=== PATIENT | female | born 1960 | race Caucasian/White ===

== ENCOUNTER → 2020-12-06 11:26 | Outpatient (CLI) | payer MEDICARE, SELFPAY ==
--- NOTE | ~2020-12-06 | MM_ITS ---
EXAMINATION: MM screening [facility] BI w yana HISTORY: Screening mammogram TECHNIQUE: Craniocaudal and mediolateral oblique 3-D tomosynthesis images were obtained and synthetic 2-D images were generated. CAD analysis was submitted and interpreted. COMPARISON: 04/16/2017 BREAST PARENCHYMAL COMPOSITION: The breasts are almost entirely fatty. FINDINGS: Scattered benign-appearing calcifications are present. There is no evidence of suspicious m ass, calcification, or architectural distortion to suggest malignancy in either breast. There has bee n no suspicious interval change. IMPRESSION: 1. No mammographic evidence of malignancy. 2. Recommend routine screening mammography in one year. BI-RADS Category 2: Benign finding(s). Reviewed, dictated and finalized at location A. NING SUPERVISOR
== END ==
PROVIDERS: PCP Family Medicine; Visit Provider Family Medicine
DX: Z12.31 Encounter for screening mammogram for malignant neoplasm of breast (principal)
CPT/HCPCS: 77063; 77067

== ENCOUNTER 2021-11-09 00:26 | Day surgery (SDC) | payer MEDICARE, SELFPAY ==
[2021-10-24 14:55] VITALS: BMI 35.0
[2021-11-09 08:30] VITALS: BP 148/88; PULSE 90; RESP 20; TEMP 36.6; O2SAT 97; BMI 35.2
--- NOTE | 2021-11-09 08:31 | WPDANESEPPF ---
Anes - Initial Pre Proc Eval Procedure: Operation Date: 11/09/21 09:30 Proposed Procedures p Screening Colonoscopy - Zaid Landa MD Date/Time: 11/09/21 08:31 Surgeon: Zaid Landa MD Pre Op Diagnosis: neoplasm screening Patient Data Age: 61 Gender: F Height: 1.63 m Weight: 92.7 kg Allergies Allergy/AdvReac Type Severity Reaction Status Date / Time bee venom protein (honey bee) Allergy Unknown Unknown Verified 11/09/21 08:28 [bees] latex Allergy Unknown CONTACT- Verified 11/09/21 08:28 REDNESS, BURNING SKIN Home Medications Medication Instructions Recorded Confirmed Type blood sugar diagnostic #10 each 10/26/19 10/24/21 History interferon beta-1a 30 mcg/0.5 mL 30 mcg IM WEEKLY 10/26/19 10/24/21 History intramuscular pen kit lancets 33 gauge #100 each 10/26/19 10/24/21 History prednisone 5 mg tablet 5 mg PO DAILY #90 tablet 06/23/20 10/24/21 Rx atorvastatin 20 mg tablet 20 mg PO DAILY 09/20/20 10/24/21 History desmopressin 0.1 mg tablet 0.1 mg PO TID tablet 09/20/20 10/24/21 History glimepiride 4 mg tablet 4 mg PO QAM 09/20/20 10/24/21 History insulin degludec 100 unit/mL (3 20 unit SUBCUT HS 09/20/20 10/24/21 History mL) subcutaneous pen levothyroxine 75 mcg tablet 75 mcg PO DAILY tablet 09/20/20 10/24/21 History semaglutide 7 mg tablet 7 mg PO DAILY 09/20/20 10/24/21 History pen needle, diabetic 31 gauge x See Rx Instructions .ROUTE 01/09/21 10/24/21 Rx 5/16 .COMPLEX #100 ea oxybutynin chloride 5 mg 5 mg PO DAILY #90 tablet 07/06/21 10/24/21 Rx tablet,extended release 24 hr pramipexole 0.25 mg tablet 0.25 mg PO TID PRN #270 tablet 09/20/21 10/24/21 Rx lorazepam 1 mg tablet 1 mg PO BID PRN #60 tablet 10/18/21 10/24/21 Rx amlodipine 5 mg tablet 5 mg PO DAILY #90 tablet 10/30/21 11/07/21 Rx omeprazole 40 mg capsule,delayed 40 mg PO DAILY #30 cap 11/08/21 Rx release Patient hx anesthesia problems: none Family hx anesthesia problems: none Results Review: All pre-operative results and documents have been reviewed as part of the pre-operative evaluation. [facility] Past Medical History Medical History Anxiety Dyslipidemia Environmental allergies Essential (primary) hypertension Hypothyroidism IDDM (insulin dependent diabetes mellitus) Multiple sclerosis OAB (overactive bladder) Panhypopituitarism Pituitary adenoma Restless legs Surgical History Surgical History History of hysterectomy History of laparotomy for endometriosis - History of mandibular surgery - for over bite Status post transsphenoidal pituitary resection 2005 Family History Family History Father Hypertension Other Carcinoma of colon Cerebrovascular accident Family history of Alzheimer's disease Family history of cardiovascular disease Family history of hearing loss Social History Social History Smoking status: Never smoker Second hand tobacco smoke exposure: No Alcohol intake: current Alcohol use details: occasionally Substance use: never Substance use type: does not use Living arrangements: alone Spiritual care concerns: No Anes - Eval Final PreProcedure Day of Procedure 11/09/21 08:31 Patient weight: obese Heart: regular rate and rhythm Lungs: clear to auscultation Airway: Mallampati scale class III Neurological: alert and oriented Last oral intake: >/= 8 hours ASA classification: III Emergent: no Anesthetic plan: proceed Anesthesia type and monitoring: general GIVS and standard monitoring Results Review: All pre-operative results and documents have been reviewed as part of the pre-operative evaluation. Informed Consent: The patient's anesthetic plan and its attendant risks and benefits were dis
[2021-11-09] MEDS: LACTATED RINGERS 1,000 ML 150 ML IV CONT (08:44)
[2021-11-09 08:45] LABS: Glucose Point of Care 100 mg/dl (65-105)
--- NOTE | 2021-11-09 09:06 | WPDGICN ---
Assessment and Plan Assessment and plan (1) History of colon polyps: Code(s): Z86.010 - Personal history of colonic polyps Status: Acute Assessment and Plan: Patient has a history of colon polyps. Most recently 2016. Plan is for surveillance colonoscopy at least every 5 year intervals. (2) Family history of colon cancer in mother: Code(s): Z80.0 - Family history of malignant neoplasm of digestive organs Status: Acute Assessment and Plan: Patient's mother and also maternal aunt had colon cancer. His surveillance is advised for this patient and her siblings. This should be performed at least 5 year intervals. (3) GERD (gastroesophageal reflux disease): Qualifiers: Esophagitis presence: esophagitis presence not specified Qualified Code(s): K21.9 - Gastro-esophageal reflux disease without esophagitis Code(s): K21.9 - Gastro-esophageal reflux disease without esophagitis Status: Acute Assessment and Plan: Patient with heartburn currently controlled with acid suppression therapy. (4) Multiple sclerosis: Code(s): G35 - Multiple sclerosis Status: Acute (5) Abdominal pain: Code(s): R10.9 - Unspecified abdominal pain Status: Acute Assessment and Plan: Patient reports lower abdominal pain irregular stools. Most likely irritable bowel syndrome. Fiber supplement such as Metamucil is advised. This will be evaluated more thoroughly at the time colonoscopy. GI Consult Note Consult date/time: 11/09/21 09:06 HPI: Vanesa Lopez is a 61 year old female Presents for screening colonoscopy. Patient has a family history of colon cancer in her mother as well as her maternal aunt. Patient herself has had colon polyps in 2016. She presents today for follow-up colonoscopy. Patient additionally notices several months history of irregular bowel movements on low suprapubic abdominal discomfort. She has not tried any specific therapy to do maneuvers to help with this. She denies any blood in her stools. She presents today for screening colonoscopy. Review of Systems Review of Systems: All systems reviewed & are unremarkable except as noted in HPI and below PMFSH Past Medical History Medical History Anxiety Dyslipidemia Environmental allergies Essential (primary) hypertension Hypothyroidism IDDM (insulin dependent diabetes mellitus) Multiple sclerosis OAB (overactive bladder) Panhypopituitarism Pituitary adenoma Restless legs Surgical History Surgical History History of hysterectomy History of laparotomy for endometriosis - History of mandibular surgery - for over bite Status post transsphenoidal pituitary resection 2005 Family History Family History Father Hypertension Other Carcinoma of colon Cerebrovascular accident Family history of Alzheimer's disease Family history of cardiovascular disease Family history of hearing loss Social History Social History Smoking status: Never smoker Second hand tobacco smoke exposure: No Alcohol intake: current Alcohol use details: occasionally Substance use: never Substance use type: does not use Living arrangements: alone Spiritual care concerns: No Meds Home Medications and Allergies Home Medications Medication Instructions Recorded Confirmed Type blood sugar diagnostic #10 each 10/26/19 10/24/21 History interferon beta-1a 30 mcg/0.5 mL 30 mcg IM WEEKLY 10/26/19 10/24/21 History intramuscular pen kit lancets 33 gauge #100 each 10/26/19 10/24/21 History prednisone 5 mg tablet 5 mg PO DAILY #90 tablet 06/23/20 10/24/21 Rx atorvastatin 20 mg tablet 20 mg PO DAILY 09/20/20 10/24/21 History de
[2021-11-09 10:04] VITALS: BP 124/78; PULSE 75; RESP 21; O2SAT 98
[2021-11-09 10:14] VITALS: BP 123/77; PULSE 74; RESP 23; O2SAT 100
[2021-11-09 10:14] LABS: Glucose Point of Care 88 mg/dl (65-105)
[2021-11-09 10:24] VITALS: BP 154/89; PULSE 64; RESP 18; O2SAT 100
== END 2021-11-09 10:32 | disposition home or self-care (01) ==
PROVIDERS: PCP Family Medicine; Visit Provider Internal Medicine Gastroenterology
PROC: 0DJD8ZZ Inspection of Lower Intestinal Tract, Via Natural or Artificial Opening Endoscopic (ICD-10-PCS; CPT 45378; principal; 2021-11-09 09:30)
DX: Z12.11 Encounter for screening for malignant neoplasm of colon (principal); D12.4 Benign neoplasm of descending colon; D12.5 Benign neoplasm of sigmoid colon; K21.9 Gastro-esophageal reflux disease without esophagitis; R10.9 Unspecified abdominal pain; I10 Essential (primary) hypertension; D35.2 Benign neoplasm of pituitary gland; E03.9 Hypothyroidism, unspecified; E78.5 Hyperlipidemia, unspecified; E11.9 Type 2 diabetes mellitus without complications; G35 Multiple sclerosis; G25.81 Restless legs syndrome; F41.9 Anxiety disorder, unspecified; Z90.710 Acquired absence of both cervix and uterus; Z80.0 Family history of malignant neoplasm of digestive organs
CPT/HCPCS: 45385; 82948; 88305; J2001; J2704; J7120

== ENCOUNTER → 2021-12-19 11:18 | Outpatient (CLI) | payer MEDICARE, SELFPAY ==
--- NOTE | ~2021-12-19 | XR_ITS ---
EXAMINATION: XR hand RT min 3V, XR wrist RT min 3V DATE: 12/19/2021 12:04 INDICATION: Unspecified right hand and wrist pain TECHNIQUE: 1. Posteroanterior, ulnar deviation, oblique, and lateral views of the right wrist were obtained. 2. Dorsal palmar, oblique and lateral views of the right hand were obtained. COMPARISON: None. FINDINGS: Alignment of the right hand and wrist are normal. No fracture identified. Polyarticular osteoarthrit is, moderate severity at the first carpometacarpal and interphalangeal joints. Mild osteoarthritis at the distal radioulnar, wrist midcarpal, triscaphe and remaining at the metacarpophalangeal joints. S oft tissues are unremarkable. IMPRESSION: 1. 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 Reviewed, dictated and finalized at location A. T MANAGEMENT CONSULTANT IMPRESSION: 1. 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
== END ==
PROVIDERS: PCP Family Medicine; Visit Provider Nurse Practitioner
DX: M19.031 Primary osteoarthritis, right wrist (principal); M19.041 Primary osteoarthritis, right hand
CPT/HCPCS: 73110; 73130

== ENCOUNTER 2022-01-26 11:40 | Emergency (ER) | payer MEDICARE, SELFPAY ==
--- NOTE | ~2022-01-26 | CT_ITS ---
EXAMINATION: CT abdomen pelvis w con DATE: 01/26/2022 13:16 INDICATION: Low abdominal pain. TECHNIQUE: Computed tomography (CT) of the abdomen and pelvis was performed with 100 mL Omnipaque 350 intravenous contrast. Automated exposure control and iterative reconstruction technique were employe d. The dose-length product was 1008.26 mGy-cm. COMPARISON: None. FINDINGS: The visualized portions of the lung bases demonstrate mild atelectasis. Calcified right juan j g nodules and calcified right hilar lymph nodes are consistent with old granulomatous disease. No ple ural effusion. The heart size is normal. There are coronary artery calcifications. No pericardial eff usion. There is a small sliding hiatal hernia. The liver and spleen are normal. The gallbladder is di stended. The pancreas, adrenal glands, and kidneys are normal. There are no dilated loops of bowel. T here is mild periportal lymphadenopathy. There is no free intraperitoneal fluid. There is mild thorac olumbar spondylosis. IMPRESSION: 1. Gallbladder distention, which may be secondary to fasting. Correlate with physical exam for eviden ce of acute cholecystitis. 2. Small sliding hiatal hernia. 3. Mild periportal lymphadenopathy, likely reactive. Reviewed, dictated and finalized at location A. ING CONSULTANT IMPRESSION: 1. Gallbladder distention, which may be secondary to fasting. Correlate with ph ysical exam for evidence of acute cholecystitis. 2. Small sliding hiatal hernia. 3. Mild periportal lymphadenopathy, likely reactive.
[2022-01-26 11:51] VITALS: BP 146/88; PULSE 96; RESP 18; TEMP 36.5; O2SAT 100
--- NOTE | 2022-01-26 12:21 | PC.NURSE ---
Per lab patient will need to provide another urine specimen.
[2022-01-26 12:22] LABS: Basophils Percent Auto 0.5 % (0.2-1.2); Eosinophils Absolute Auto 0.2 K/mm3 (0-0.3); Eosinophils Percent Auto 3.4 % (0-4.4); Hematocrit 39.1 % (37.0-47.0); Hemoglobin 13.7 g/dL (12.0-15.0); Immature Granulocyte Absolute 0.02 K/mm3 (0.00-0.031); Immature Granulocyte Percent A 0.5 % (0-0.5); Lymphocytes Percent Auto 22.5 % (18.3-44.2); Mean Corpuscular Hemoglobin 30.7 pg (26-34); Mean Corpuscular Volume 87.7 fl (80-100); Mean Platelet Volume 10.7 fl (7.4-10.4); Monocytes Absolute Auto 0.6 K/mm3 (0.1-0.6); Monocytes Percent Auto 13.1 % (2.6-8.5); Neutrophils Absolute Auto 2.7 K/mm3 (1.3-6.7); Platelet Count Result 165 k/mm3 (150-375); Red Blood Count 4.46 M/mm3 (4.2-5.4); Red Cell Distribution Width 12.1 % (11.5-14.5); White Blood Count 4.4 K/mm3 (4.5-10.0)
--- NOTE | 2022-01-26 12:33 | PC.NURSE ---
Sample Book Maker reinfornced patient awareness of the need for a urine sample. Patient reports it was her second attempt at providing a urine sample but was unable to provide a sample at this time.
--- NOTE | 2022-01-26 12:34 | ED.FEMALEGU ---
HPI - Female Genitourinary General Chief complaint: Urogenital-Female Stated complaint: unable to urinate Time Seen by Provider: 01/26/22 12:10 History of Present Illness HPI Narrative: 61-year-old female presents to the emergency room with 3 days of urinary retention. States she was seen in her primary care's office today for initial evaluation, PCP stated that she did not have a urinary tract infection. Was encouraged to come to the emergency room for further evaluation. Patient has a history of hysterectomy due to endometriosis. Denies back pain, denies fever. Denies constipation, denies diarrhea. Reports suprapubic fullness. Denies vaginal bleeding. And hematuria Related Data Home Medications Medication Instructions Recorded Confirmed blood sugar diagnostic #10 each 10/26/19 01/26/22 interferon beta-1a 30 mcg/0.5 mL 30 mcg IM WEEKLY 10/26/19 01/26/22 intramuscular pen kit lancets 33 gauge #100 each 10/26/19 01/26/22 atorvastatin 20 mg tablet 20 mg PO DAILY 09/20/20 01/26/22 desmopressin 0.1 mg tablet 0.1 mg PO TID tablet 09/20/20 01/26/22 glimepiride 4 mg tablet 4 mg PO QAM 09/20/20 01/26/22 insulin degludec 100 unit/mL (3 20 unit SUBCUT HS 09/20/20 01/26/22 mL) subcutaneous pen levothyroxine 75 mcg tablet 75 mcg PO DAILY tablet 09/20/20 01/26/22 semaglutide 7 mg tablet 7 mg PO DAILY 09/20/20 01/26/22 Allergies Allergy/AdvReac Type Severity Reaction Status Date / Time bee venom protein (honey bee) Allergy Unknown Unknown Verified 01/26/22 10:54 [bees] latex Allergy Unknown CONTACT- Verified 01/26/22 10:54 REDNESS, BURNING SKIN Review of Systems Review of Systems: CONSTITUTIONAL: Denies fever, chills, or sweats. EYES: Denies visual changes, redness, or discharge. ENT: Denies rhinorrhea, congestion, sore throat, or otalgia. CARDIOVASCULAR: Denies chest pain, palpitations, or edema. RESPIRATORY: Denies cough or dyspnea. GASTROINTESTINAL: Reports suprapubic fullness, nausea. Denies diarrhea, constipation, vomiting GENITOURINARY: Denies dysuria or hematuria. SKIN: Denies rash or itching. MUSCULOSKELETAL: Denies back pain, joint pain, or myalgia. NEUROLOGIC: Denies headache, numbness, dizziness, or weakness. PSYCHIATRIC: Denies anxiety or depression. [facility] Past Medical History Medical History Anxiety Dyslipidemia Environmental allergies Essential (primary) hypertension History of colon polyps Hypothyroidism IDDM (insulin dependent diabetes mellitus) Multiple sclerosis OAB (overactive bladder) Panhypopituitarism Pituitary adenoma Restless legs Surgical History Surgical History History of hysterectomy History of laparotomy for endometriosis - History of mandibular surgery - for over bite Status post transsphenoidal pituitary resection 2005 Family History Family History Father Hypertension Other Carcinoma of colon Cerebrovascular accident Family history of Alzheimer's disease Family history of cardiovascular disease Family history of hearing loss Social History Social History Smoking status: Never smoker Second hand tobacco smoke exposure: No Alcohol intake: current Alcohol use details: occasionally Substance use: never Substance use type: does not use Spiritual care concerns: No Exam Narrative: GENERAL: Well-appearing, well-nourished, and in no acute distress. HEAD: Normocephalic, atraumatic. EYES: PERRLA and EOMI. ENT: Nares clear, no rhinorrhea or epistaxis. Mucous membranes moist. NECK: Supple. No adenopathy or masses. No carotid bruits or JVD CHEST: Clear to auscultation. No respiratory distress. No wheezes rales or rhonchi HEART: Regular rate and rhythm. No murmur heard. Normal periphera
[2022-01-26 12:36] LABS: Alanine Aminotransferase 32 U/L (4-35); Albumin Level 3.9 g/dL (3.5-5.1); Alkaline Phosphatase 67 U/L (38-126); Anion Gap 7 mmol/L (8-16); Aspartate Amino Transferase 36 U/L (14-36); Bilirubin,Total 0.8 mg/dL (0.2-1.3); Blood Urea Nitrogen 6 mg/dL (7-17); Calcium 8.7 mg/dL (8.4-10.2); Carbon Dioxide 27 mmol/L (22-30); Chloride 98 mmol/L (98-107); Estimated Glomerular Filt Rate > 60; Glucose 137 mg/dL (65-110); Lipase 102 U/L (23-300); Potassium 3.3 mmol/L (3.4-5.0); Sodium 132 mmol/L (137-145)
[2022-01-26] MEDS: SODIUM CHLORIDE 0.9% IV 1,000 ML 999 ML IV CONT (13:03)
[2022-01-26] MEDS: ONDANSETRON INJ 4 MG/2 ML VIAL IV PUSH (13:03)
[2022-01-26 13:09] LABS: Add Urine Microscopic? YES; Appearance Urine Cloudy (Clear); Bilirubin Urine Negative (Negative); Blood Urine 1+ (Negative); Color Urine Yellow (Yellow); Glucose Urine UA Negative (Negative); Ketones Urine Negative (Negative); Leukocyte Esterase Ur 3+ LEU/UL (Negative); Mucus Urine Few /lpf; Nitrate Urine Negative (Negative); Protein Urine 2+ mg/dL (Negative); RBC Urine 51-75 /hpf (0-2); Specific Grav Ur 1.025 (1.001-1.035); Squamous Epithelial Cell Urine Moderate /hpf (Few); WBC Clumps Urine Present /HPF; WBC Urine >75 /hpf
--- NOTE | 2022-01-26 14:07 | PC.NURSE ---
Pt states she was given an rx by her pcp for cipro today,
[2022-01-26 14:12] VITALS: BP 145/84; PULSE 103; RESP 18; O2SAT 97
== END 2022-01-26 14:14 | disposition home or self-care (01) ==
PROVIDERS: General Practice; Emergency Provider Nurse Practitioner Family; PCP Family Medicine
DX: N30.00 Acute cystitis without hematuria (principal); E78.5 Hyperlipidemia, unspecified; I10 Essential (primary) hypertension; E03.9 Hypothyroidism, unspecified; E11.9 Type 2 diabetes mellitus without complications; G35 Multiple sclerosis; N32.81 Overactive bladder; G25.81 Restless legs syndrome; E23.0 Hypopituitarism; Z86.010 Personal history of colon polyps; Z79.4 Long term (current) use of insulin; F41.9 Anxiety disorder, unspecified
CPT/HCPCS: 36415; 51701; 74177; 80053; 81001; 83690; 85025; 87077; 87086; 87186; 96361; 96374; 99284; J2405; J7030; Q9967

== ENCOUNTER 2022-02-08 13:09 | Emergency (ER) | payer MEDICARE, SELFPAY ==
--- NOTE | ~2022-02-08 | CT_ITS ---
EXAMINATION: CT abdomen pelvis w con INDICATION: Abdominal pain TECHNIQUE: Computed tomographic images of the abdomen and pelvis were obtained after the administrati on of 100 cc of Omnipaque 350 intravenous contrast. The dose-length product (DLP) was 937.60 mGy-cm. Automated exposure control and iterative reconstruction technique were employed. COMPARISON: 01/26/2022 FINDINGS: Minimal dependent atelectasis is present in the lung bases. The heart size is normal. There is a small sliding hiatal hernia. The liver, spleen, pancreas, and adrenal glands are normal. The ga llbladder remains mildly distended. Mild periportal lymphadenopathy persists without significant merchant ge. The kidneys are unremarkable. A retroaortic left renal vein is noted. There are no pathologically enlarged pelvic lymph nodes. There is no free intraperitoneal gas or evidence of bowel obstruction. There is mild lumbar spondylosis. IMPRESSION: 1. Persistent mild distention of the gallbladder which could be due to fasting. Correlate for right u pper quadrant tenderness. 2. Unchanged mild periportal lymphadenopathy, likely reactive. Reviewed, dictated and finalized at location B. T TRAFFIC MANAGER IMPRESSION: 1. Persistent mild distention of the gallbladder which could be due to fasting. Correlate for right upper quadrant tenderness. 2. Unchanged mild periportal lymphadenopathy, likely reactive.
--- NOTE | 2022-02-08 13:11 | ECG_ITS ---
Measurements Intervals [place] Rate: 86 P: 44 VA: 179 QRS: -58 QRSD: 101 T: 48 QT: 341 QTc: 408 Interpretive Statements SINUS RHYTHM LOW QRS VOLTAGE IN PRECORDIAL LEADS [QRS DEFLECTION < 1.0 mV IN CHEST LEADS] LEFT ANTERIOR FASCICULAR BLOCK [QRS AXIS <= -45, QR IN I, RS IN II] POOR R-WAVE PROGRESSION BORDERLINE ECG COMPARED TO ECG 06/14/2019 21:23:59 LEFT ANTERIOR FASCICULAR BLOCK NOW PRESENT Electronically Signed On 02-08-2022 14:23:04 BREAKER TABLE WORKER by Edwin Ortega M.D.
[2022-02-08 13:12] VITALS: BP 153/94; PULSE 87; RESP 14; TEMP 36.4; O2SAT 98
[2022-02-08 13:47] LABS: Basophils Percent Auto 0.4 % (0.2-1.2); Eosinophils Absolute Auto 0.2 K/mm3 (0-0.3); Eosinophils Percent Auto 3.5 % (0-4.4); Hematocrit 38.2 % (37.0-47.0); Hemoglobin 13.3 g/dL (12.0-15.0); Immature Granulocyte Absolute 0.02 K/mm3 (0.00-0.031); Immature Granulocyte Percent A 0.4 % (0-0.5); Lymphocytes Absolute Auto 0.94 K/mm3 (0.9-3.2); Lymphocytes Percent Auto 18.1 % (18.3-44.2); Mean Corpuscular HGB Conc 34.8 g/dl (32-36); Mean Platelet Volume 10.5 fl (7.4-10.4); Monocytes Absolute Auto 0.7 K/mm3 (0.1-0.6); Monocytes Percent Auto 13.8 % (2.6-8.5); Neutrophils Absolute Auto 3.3 K/mm3 (1.3-6.7); Neutrophils Percent Auto 63.8 % (45.5-73.1); Platelet Count Result 184 k/mm3 (150-375); Red Blood Count 4.44 M/mm3 (4.2-5.4); Red Cell Distribution Width 11.9 % (11.5-14.5); White Blood Count 5.2 K/mm3 (4.5-10.0)
[2022-02-08 13:50] LABS: Add Urine Microscopic? NO; Appearance Urine Clear (Clear); Bilirubin Urine Negative (Negative); Blood Urine Negative (Negative); Color Urine Yellow (Yellow); Glucose Urine UA Negative (Negative); Ketones Urine Negative (Negative); Leukocyte Esterase Ur Negative LEU/UL (Negative); Nitrate Urine Negative (Negative); Protein Urine Negative (Negative); Urobilinogen Urine Negative mg/dL (<2.0)
[2022-02-08 14:17] VITALS: PULSE 81; RESP 20; O2SAT 98
--- NOTE | 2022-02-08 14:17 | ED.NAVMDI ---
HPI - Nausea/Vomiting/Diarrhea General Chief complaint: Nausea/Vomiting/Diarrhea Stated complaint: Left arm numbness and vomiting Time Seen by Provider: 02/08/22 13:18 Source: patient Mode of arrival: ambulatory Limitations: no limitations History of Present Illness HPI Narrative: Patient is a 61-year-old female, with a past medical history of MS, diabetes mellitus, panhypopituitarism, and HTN, who presents to the ED with complaints of nausea/vomiting. Patient was seen in the ED on 01/26 and diagnosed with a UTI after having several days of urinary retention. She was prescribed Cipro for this and has finished her antibiotics. Her urinary symptoms have resolved. She reports having nausea and anorexia the past week. She states she has just felt unwell. She was prescribed Zofran ODT but denies any relief of her nausea with this. She saw her PCP for follow-up appointment yesterday at which point she denied nausea. Repeat labs were ordered for today due to the patient having hyponatremia (127) in the ED on 01/26. Patient states that she began vomiting with chills this morning at which point she decided to present to the ED. She did not have the labs done today. Patient mentions she has been constipated recently due to not eating much, denies any significant abdominal pain, diarrhea, rectal bleeding, fever, chest pain, shortness of breath. Related Data Home Medications Medication Instructions Recorded Confirmed blood sugar diagnostic #10 each 10/26/19 02/06/22 interferon beta-1a 30 mcg/0.5 mL 30 mcg IM WEEKLY 10/26/19 02/06/22 intramuscular pen kit lancets 33 gauge #100 each 10/26/19 02/06/22 desmopressin 0.1 mg tablet 0.1 mg PO TID tablet 09/20/20 02/06/22 glimepiride 4 mg tablet 4 mg PO QAM 09/20/20 02/06/22 insulin degludec 100 unit/mL (3 20 unit SUBCUT HS 09/20/20 02/06/22 mL) subcutaneous pen levothyroxine 75 mcg tablet 75 mcg PO DAILY tablet 09/20/20 02/06/22 semaglutide 7 mg tablet 7 mg PO DAILY 09/20/20 02/06/22 atorvastatin 20 mg tablet 20 mg PO QHS tablet 02/06/22 02/06/22 Allergies Allergy/AdvReac Type Severity Reaction Status Date / Time bee venom protein (honey bee) Allergy Unknown Unknown Verified 02/06/22 11:18 [bees] latex Allergy Unknown CONTACT- Verified 02/06/22 11:18 REDNESS, BURNING SKIN Review of Systems Review of Systems: CONSTITUTIONAL: Reports chills, anorexia. Denies fever or sweats. CARDIOVASCULAR: Denies chest pain, palpitations, or edema. RESPIRATORY: Denies cough or dyspnea. GASTROINTESTINAL: Reports nausea, vomiting, constipation. Denies abdominal pain, diarrhea, rectal bleeding. GENITOURINARY: Denies dysuria or hematuria. MUSCULOSKELETAL: Denies back pain, joint pain, or myalgia. NEUROLOGIC: Denies headache, numbness, or weakness. All systems reviewed & are unremarkable except as noted in HPI and below PMFSH Past Medical History Medical History Anxiety Dyslipidemia Environmental allergies Essential (primary) hypertension History of colon polyps Hypothyroidism IDDM (insulin dependent diabetes mellitus) Multiple sclerosis OAB (overactive bladder) Panhypopituitarism Pituitary adenoma Restless legs Surgical History Surgical History History of hysterectomy History of laparotomy for endometriosis - History of mandibular surgery - for over bite Status post transsphenoidal pituitary resection 2005 Family History Family History Father Hypertension Other Carcinoma of colon Cerebrovascular accident Family history of Alzheimer's disease Family history of cardiovascular disease Family history of hearing loss Social History Social History Second hand tobacco smoke exposure: No Alcohol intake: current Alcohol use d
[2022-02-08] MEDS: SODIUM CHLORIDE 0.9% IV 1,000 ML 999 ML IV CONT (14:25)
[2022-02-08] MEDS: ONDANSETRON INJ 4 MG/2 ML VIAL IV PUSH (14:25)
[2022-02-08 14:30] VITALS: PULSE 89; RESP 20; O2SAT 93
[2022-02-08 14:38] LABS: Alanine Aminotransferase 26 U/L (4-35); Albumin Level 3.8 g/dL (3.5-5.1); Alkaline Phosphatase 60 U/L (38-126); Anion Gap 8 mmol/L (8-16); Aspartate Amino Transferase 45 U/L (14-36); Bilirubin,Total 0.7 mg/dL (0.2-1.3); Blood Urea Nitrogen 9 mg/dL (7-17); Calcium 8.6 mg/dL (8.4-10.2); Carbon Dioxide 21 mmol/L (22-30); Chloride 96 mmol/L (98-107); Estimated CRCL calculation 94 ml/min; Estimated Glomerular Filt Rate > 60; Glucose 86 mg/dL (65-110); Lipase 133 U/L (23-300); Potassium 3.4 mmol/L (3.4-5.0); Sodium 125 mmol/L (137-145)
[2022-02-08 14:45] VITALS: BP 130/75; PULSE 87; RESP 18; O2SAT 95
== END 2022-02-08 17:37 | disposition home or self-care (01) ==
PROVIDERS: Emergency Medicine; Emergency Provider Emergency Medicine; PCP Family Medicine
DX: R11.2 Nausea with vomiting, unspecified (principal); E87.1 Hypo-osmolality and hyponatremia; G35 Multiple sclerosis; E78.5 Hyperlipidemia, unspecified; I10 Essential (primary) hypertension; E03.9 Hypothyroidism, unspecified; E11.9 Type 2 diabetes mellitus without complications; N32.81 Overactive bladder; E89.3 Postprocedural hypopituitarism; G25.81 Restless legs syndrome; I44.4 Left anterior fascicular block; Z79.4 Long term (current) use of insulin
CPT/HCPCS: 36415; 74177; 80053; 81003; 83690; 85025; 93005; 96361; 96374; 99284; J2405; J7030; Q9967

== ENCOUNTER 2022-02-19 08:19 | Emergency (ER) | payer MEDICARE, SELFPAY ==
[2022-02-19] VITALS (17 sets, daily range): BP systolic 112–141; BP diastolic 57–90; PULSE 81; RESP 18; TEMP 36.8; O2SAT 95–100
--- NOTE | 2022-02-19 08:39 | PC.NURSE ---
Dr. Hernandez at bedside to assess pt.
--- NOTE | 2022-02-19 08:50 | ED.NAVMDI ---
HPI - Nausea/Vomiting/Diarrhea General Chief complaint: Nausea/Vomiting/Diarrhea Stated complaint: vomiting, decreased PO intake Time Seen by Provider: 02/19/22 08:33 Source: patient History of Present Illness HPI Narrative: Patient presents with nausea vomiting and abdominal pain. Patient reports she has been seen multiple times recently initially diagnosed with a urinary tract infection and low sodium. She has follow-up with her primary care doctor but still is unsure as to what is causing her symptoms. Overall sports is present for approximately 1 month. Last night she had a hard time keeping Jell-O and a soda down so she came to the ER this morning for further evaluation. Abdominal pain is achy, constant is primarily in her upper abdomen no radiation no clear aggravating or alleviating factors. Reports nausea and vomiting she denies any diarrhea. Reports mild cough denies any urinary symptoms Related Data Home Medications Medication Instructions Recorded Confirmed blood sugar diagnostic #10 each 10/26/19 02/06/22 interferon beta-1a 30 mcg/0.5 mL 30 mcg IM WEEKLY 10/26/19 02/06/22 intramuscular pen kit lancets 33 gauge #100 each 10/26/19 02/06/22 desmopressin 0.1 mg tablet 0.1 mg PO TID tablet 09/20/20 02/06/22 glimepiride 4 mg tablet 4 mg PO QAM 09/20/20 02/06/22 insulin degludec 100 unit/mL (3 20 unit SUBCUT HS 09/20/20 02/06/22 mL) subcutaneous pen levothyroxine 75 mcg tablet 75 mcg PO DAILY tablet 09/20/20 02/06/22 semaglutide 7 mg tablet 7 mg PO DAILY 09/20/20 02/06/22 atorvastatin 20 mg tablet 20 mg PO QHS tablet 02/06/22 02/06/22 Allergies Allergy/AdvReac Type Severity Reaction Status Date / Time bee venom protein (honey bee) Allergy Unknown Unknown Verified 02/06/22 11:18 [bees] latex Allergy Unknown CONTACT- Verified 02/06/22 11:18 REDNESS, BURNING SKIN Review of Systems Review of Systems: CONSTITUTIONAL: Denies fever, chills, or sweats. EYES: Denies visual changes, redness, or discharge. ENT: Denies rhinorrhea, congestion, sore throat, or otalgia. CARDIOVASCULAR: Denies chest pain, palpitations, or edema. RESPIRATORY: Deniesr dyspnea. GASTROINTESTINAL: Nausea and vomiting and abdominal pain GENITOURINARY: Denies dysuria or hematuria. SKIN: Denies rash or itching. MUSCULOSKELETAL: Denies back pain, joint pain, or myalgia. NEUROLOGIC: Denies headache, numbness, dizziness, or weakness. PSYCHIATRIC: Denies anxiety or depression. All systems reviewed & are unremarkable except as noted in HPI and below PMFSH Past Medical History Medical History Anxiety Dyslipidemia Environmental allergies Essential (primary) hypertension History of colon polyps Hypothyroidism IDDM (insulin dependent diabetes mellitus) Multiple sclerosis OAB (overactive bladder) Panhypopituitarism Pituitary adenoma Restless legs Surgical History Surgical History History of hysterectomy History of laparotomy for endometriosis - History of mandibular surgery - for over bite Status post transsphenoidal pituitary resection 2005 Family History Family History Father Hypertension Other Carcinoma of colon Cerebrovascular accident Family history of Alzheimer's disease Family history of cardiovascular disease Family history of hearing loss Social History Social History Second hand tobacco smoke exposure: No Alcohol intake: current Alcohol use details: occasionally Substance use: never Substance use type: does not use Spiritual care concerns: No Exam Narrative: GENERAL: Well-appearing, well-nourished, and in no acute distress. HEAD: Normocephalic, atraumatic. EYES: PERRLA and EOMI. ENT: Nares clear, no rhinorrhea or epistaxis. Mucous membrane
[2022-02-19 09:02] LABS: Basophils Percent Auto 0.5 % (0.2-1.2); Eosinophils Absolute Auto 0.3 K/mm3 (0-0.3); Eosinophils Percent Auto 6.3 % (0-4.4); Hematocrit 36.4 % (37.0-47.0); Hemoglobin 12.9 g/dL (12.0-15.0); Immature Granulocyte Absolute 0.01 K/mm3 (0.00-0.031); Immature Granulocyte Percent A 0.3 % (0-0.5); Lymphocytes Absolute Auto 0.78 K/mm3 (0.9-3.2); Lymphocytes Percent Auto 19.5 % (18.3-44.2); Mean Corpuscular HGB Conc 35.4 g/dl (32-36); Mean Corpuscular Hemoglobin 29.9 pg (26-34); Mean Corpuscular Volume 84.5 fl (80-100); Mean Platelet Volume 10.9 fl (7.4-10.4); Monocytes Absolute Auto 0.7 K/mm3 (0.1-0.6); Monocytes Percent Auto 18.3 % (2.6-8.5); Neutrophils Absolute Auto 2.2 K/mm3 (1.3-6.7); Neutrophils Percent Auto 55.1 % (45.5-73.1); Platelet Count Result 149 k/mm3 (150-375); Red Blood Count 4.31 M/mm3 (4.2-5.4); Red Cell Distribution Width 11.6 % (11.5-14.5)
[2022-02-19 09:13] LABS: Alanine Aminotransferase 29 U/L (4-35); Albumin Level 3.8 g/dL (3.5-5.1); Alkaline Phosphatase 67 U/L (38-126); Anion Gap 7 mmol/L (8-16); Aspartate Amino Transferase 47 U/L (14-36); Bilirubin,Total 0.7 mg/dL (0.2-1.3); Blood Urea Nitrogen 6 mg/dL (7-17); Calcium 8.4 mg/dL (8.4-10.2); Carbon Dioxide 25 mmol/L (22-30); Chloride 97 mmol/L (98-107); Estimated CRCL calculation 94 ml/min; Estimated Glomerular Filt Rate > 60; Glucose 103 mg/dL (65-110); Lipase 133 U/L (23-300); Potassium 3.3 mmol/L (3.4-5.0); Sodium 129 mmol/L (137-145)
[2022-02-19 09:16] LABS: Add Urine Microscopic? NO; Appearance Urine Clear (Clear); Bilirubin Urine Negative (Negative); Blood Urine Negative (Negative); Color Urine Yellow (Yellow); Glucose Urine UA Negative (Negative); Ketones Urine Negative (Negative); Leukocyte Esterase Ur Negative LEU/UL (Negative); Nitrate Urine Negative (Negative); Protein Urine Negative (Negative); Specific Grav Ur 1.005 (1.001-1.035); Urobilinogen Urine Negative mg/dL (<2.0)
[2022-02-19] MEDS: MAG HYDROX/AL HYDROX/SIMETH 30 ML UDC PO (09:20)
[2022-02-19] MEDS: LIDOCAINE HCL 2% VISC SOLN 15 ML UDC 20 ML PO (09:20)
[2022-02-19] MEDS: ONDANSETRON INJ 4 MG/2 ML VIAL IV PUSH (09:20)
[2022-02-19] MEDS: SODIUM CHLORIDE 0.9% IV 1,000 ML 999 ML IV CONT (09:21)
[2022-02-19] MEDS: POTASSIUM CHLORIDE 20 MEQ PACKET (FOR LIQUID) 40 MEQ PO (10:15)
[2022-02-19] MEDS: PROCHLORPERAZINE EDISYLATE 10 MG/2 ML VIAL IV PUSH (10:15)
--- NOTE | 2022-02-19 10:15 | PC.NURSE ---
Patient ambulated to bathroom with steady gait. Continue to complain of abdominal pain and nausea. IV compazine administered and IVF continue infusing.
--- NOTE | 2022-02-19 11:00 | PC.NURSE ---
Normal Saline IVF stopped at 1100.
== END 2022-02-19 11:08 | disposition home or self-care (01) ==
PROVIDERS: Emergency Provider Emergency Medicine; PCP Family Medicine
DX: R11.2 Nausea with vomiting, unspecified (principal); E87.6 Hypokalemia; E87.1 Hypo-osmolality and hyponatremia; R10.9 Unspecified abdominal pain; E78.5 Hyperlipidemia, unspecified; I10 Essential (primary) hypertension; E03.9 Hypothyroidism, unspecified; Z86.010 Personal history of colon polyps; G35 Multiple sclerosis; E11.9 Type 2 diabetes mellitus without complications; N32.81 Overactive bladder; G25.81 Restless legs syndrome; E23.0 Hypopituitarism; F41.9 Anxiety disorder, unspecified; Z79.4 Long term (current) use of insulin; Z79.899 Other long term (current) drug therapy
CPT/HCPCS: 36415; 80053; 81003; 83690; 85025; 96361; 96374; 96375; 99284; A9270; J0780; J2405; J7030